=== PATIENT | male | born 1960 | race African-American/Black ===

== ENCOUNTER 2022-08-02 19:08 | Inpatient (IN) | payer OTHER ==
[~2022-08-02] VITALS: Ht 172.7 cm; Wt 91.6 kg
[2022-08-02] MEDS ORDERED: GLIPIZIDE XL2.5 MG PO (20:25)
[2022-08-02] MEDS ORDERED: AVAPRO300 MG PO (20:26)
[2022-08-02] MEDS ORDERED: CLONIDINE1 EAC1 TD (20:26)
[2022-08-02] MEDS ORDERED: DOXAZOSIN MESYLA2 MG PO (20:26)
[2022-08-02] MEDS ORDERED: SIMVASTATIN5 MG PO (20:27)
[2022-08-02] MEDS ORDERED: VERELAN180 MG PO (20:27)
[2022-08-02] MEDS ORDERED: GLUMETZA1000 MG PO (20:28)
--- NOTE | 2022-08-02 20:46 | NUR ---
PTE ALERTA Y ORIENTADO X3 REFIERE TENER HBP. SE REALIZA B/P MANUAL Y PT PRESENTO 230/120 MANUAL.
--- NOTE | 2022-08-02 21:20 | NUR ---
PTE MASCULINO ALERTA Y ORIENTADAO X3 ES EVALUADO POR . SE ORIENTA PTE SOBRE ORDNEES DE TX REFIERE COMPRENDER. SE UBICA PTE EN CAMA #2 DE UNIDAD DE CRITICO. SE CONECTA A MONITOR CARDIACO Y OXIMETRIA DE PULSO CONTINUA. SE COLECTAN MUESTRAS DE LABORATORIOS Y SE CANALIZA VENA BAJO MEDIDAS ASEPTICAS. SE ADMINISTRAN MEDICAMENTOS, BAJO MEDIDAS ASEPTICAS. SE NOTIFICA A RADIOLOGIA PARA CT PENDIENTE.
--- NOTE | 2022-08-02 23:24 | NUR ---
MASCULINO DE 61 ANOS ES RECIBIDO DEL TURNO ANTERIOR. PTE SE OBSERVA SE ALERTA Y ORIENTADO X 3 CON PATRON RESPIRATORIO ADECUADO CON SATURACION EN 98. PTE SE OBSERVA CON CANALIZACION CON ANGIO 18 EN EL BRAZO DERECHO BAJANDOLE CLEVIPREX DE 50MG/100ML A 16ML/MG (8MG). PTE SE OBSERVA CON TEXTURA DE PIEL NORMAL Y PRESIONES EN 180/96 A LAS 2300. PENDIENTE A REALIZAR CT DE VANDA QUE YA FUE NOTIFICADO A TECNICO DE TURNO. PTE ES EVALUADO AL MOMENTO POR DR HWANG (INTERNISTA).
[2022-08-07] MEDS ORDERED: SIMVASTATIN40 MG PO (10:19)
[2022-08-07] MEDS ORDERED: CARVEDILOL6.25 MG PO (10:19)
[2022-08-07] MEDS ORDERED: AVAPRO300 MG PO (10:19)
[2022-08-07] MEDS ORDERED: GLUMETZA1000 MG PO (10:19)
[2022-08-07] MEDS ORDERED: NIFEDIPINE ER60 MG PO (10:19)
[2022-08-07] MEDS ORDERED: CLONIDINE1 EAC1 TD (10:19)
[2022-08-07] MEDS ORDERED: GLIMEPIRIDE2 MG PO (10:19)
[2022-08-07] MEDS ORDERED: SPIRONOLACTONE25 MG PO (10:19)
== END 2022-08-07 11:47 | disposition home or self-care (01) | DRG 305 ==
LOC: ER 19:08 → ICU-2 23:26 → MEDJ 23:26
PROVIDERS: ADMIT Internal Medicine; ATTEND Internal Medicine
PROC: B246ZZZ Ultrasonography of Right and Left Heart (ICD-10-PCS; principal; 2022-08-02)
PROC: B343ZZ3 Ultrasonography of Right Common Carotid Artery, Intravascular (ICD-10-PCS; 2022-08-02)
PROC: BW28ZZZ Computerized Tomography (CT Scan) of Head (ICD-10-PCS; 2022-08-02)
DX: I16.0 Hypertensive urgency (principal); E11.69 Type 2 diabetes mellitus with other specified complication; E78.5 Hyperlipidemia, unspecified; E87.6 Hypokalemia; Z20.822 Contact with and (suspected) exposure to COVID-19